=== PATIENT | female | born 1990 | race Caucasian/White ===

== ENCOUNTER → 2019-03-20 | Outpatient (CLI) | payer SELFPAY | LOC: LAB.O 11:50 | PROVIDERS: ATTEND Obstetrics & Gynecology | DX: N92.6 Irregular menstruation, unspecified (principal) ==

== ENCOUNTER → 2019-03-20 | Outpatient (CLI) | payer OTHER | LOC: LAB.O 11:37 | PROVIDERS: ATTEND Obstetrics & Gynecology | DX: N92.6 Irregular menstruation, unspecified (principal) ==

== ENCOUNTER → 2019-05-10 | Outpatient (CLI) | payer BC, OTHER ==
--- NOTE | 2019-05-10 12:00 | US ---
US THYROID CLINICAL STATEMENT: ENLARGED THYROID. COMPARISON: None TECHNIQUE: Transcutaneous scanning, grayscale and Doppler modes. FINDINGS: Size right thyroid lobe: 4.9 x 1.4 x 1.3 cm Size left thyroid lobe: 4.6 x 1.2 x 1.1 cm Size isthmus: 0.18 cm Estimated total number of nodules greater than or equal to 1 cm: None. Both lobes and isthmus are heterogeneous. Nodule 1: Size: 0.9 x 0.6 x 0.4 cm Location: Left Mid Composition: solid or almost completely solid: 2 points Echogenicity: hypoechoic: 2 points Shape: wider than tall: 0 points Margins: smooth: 0 points Echogenic foci: none: 0 points ACR Total Points: 4; ACR TI-RADS risk category: TR4 - moderately suspicious nodule. No other nodules. No distinct cyst, calcifications, or parenchymal edema. Soft tissue around the thyroid gland is unremarkable. IMPRESSION: 1. Nodule 1: ACR TI-RADS 2017 Category TR4. Recommend: No further follow-up.. Recommendations based upon [employer] recommendations and ACR TI-RADS 2017 guidelines. Please see below*. 2. No cysts in the thyroid gland. Heterogeneous echoes. Soft tissues around the thyroid gland unremarkable. *ACR TI-RADS 2017 Recommendations: TR1: No FNA or follow up TR2: No FNA or follow up TR3: FNA if >/= 2.5 cm, follow up if 1.5 - 2.4 cm in 1, 3, and 5 years TR4: FNA if >/= 1.5 cm, follow up if 1.0 - 1.4 cm in 1, 2, 3, and 5 years TR5: FNA if >/= 1.0 cm, follow up if 0.5 - 0.9 cm every year for 5 years ACR TI-RADS recommends that no more than two nodules with the highest ACR TI-RADS total point should be biopsied and no more than four nodules should be followed. These recommendations do not apply to patients with increased risk for thyroid cancer or patients with symptomatic thyroid disease. Electronically signed by: Monty Ventura MD 05/10/2019 11:58 AM CDT
== END ==
LOC: LAB.O 07:43
PROVIDERS: ATTEND Internal Medicine Endocrinology, Diabetes & Metabolism
DX: E04.1 Nontoxic single thyroid nodule (principal); L70.9 Acne, unspecified; E16.2 Hypoglycemia, unspecified; R94.7 Abnormal results of other endocrine function studies